=== PATIENT | female | born 1935 | race Caucasian/White ===

== ENCOUNTER 2018-08-30 01:58 | Observation (INO) ==
[2018-08-30 02:59] LABS: Basophils # 0.1 10*3/uL (0.0-0.2); Basophils % 0.8 % (0.0-0.8); Eosinophils # 0.3 10*3/uL (0.0-0.87); Eosinophils % 3.3 % (0.00-10.9); Hematocrit 40.4 VOL% (35.7-47.0); Hemoglobin 12.9 GM/DL (12.0-16.0); Immature Granulocytes % 0.5 %; Immature Granulocytes Absolute 0.04 #; Lymphocytes % 25.8 % (21.3-54.2); Mean Corpuscular HGB Conc 31.9 GM/DL (32-36); Mean Corpuscular Volume 88.2 FL (87-102); Mean Platelet Volume 10.1 FL (9.6-12.0); Monocytes % 7.2 % (1.7-12.7); Neutrophils % 62.4 % (38.7-73.9); Platelet Count 110 T/CUMM (130-400); Red Blood Count 4.58 MC/CUMM (3.8-5.5); Red Cell Distribution Width 14.1 % (9.3-17.3); White Blood Count 7.6 T/CUMM (4-12)
[2018-08-30] MEDS ORDERED: ONDANSETRON 4 MG/2 ML VIAL IV STA ×2 (03:05→05:08)
[2018-08-30] MEDS ORDERED: HYDROmorphone 2 MG/1 ML VIAL IV STA (03:05)
[2018-08-30] MEDS ORDERED: SODIUM CHLORIDE 0.9% 500 ML IV STA (03:05)
[2018-08-30 03:12] LABS: Albumin 3.4 G/DL (3.4-5.0); Bilirubin,Total 0.4 MG/DL (0.2-1.0); Calcium 8.9 MG/DL (8.5-10.1); Osmolality,Calculated 281.7 MOS/KG (273-304); Total Protein 7.7 G/DL (6.4-8.3)
[2018-08-30 04:03] LABS: Apearance,Urine CLEAR (Clear); Bilirubin,Urine Negative (Negative); Blood, Urine Negative (Negative); Glucose,Urine (UA) Negative (Negative); Hyaline Casts,Urine 40 /LPF (0-3); Ketones,Urine Negative (Negative); Mucus,Urine Many /LPF (Occasional); Nitrite,Urine Negative (Negative); Protein,Urine 100 MG/DL; RBC,Urine 2 /HPF (0-4); Squamous Epithelial Cell,Urine Occasional /HPF (0-10); Urine Color Yellow (Yellow); WBC,Urine 3 /HPF (0-6)
[2018-08-30] MEDS ORDERED: MAGNESIUM SULF RIDER 2 GM in PREMIX 1 EACH IV STA (04:11)
[2018-08-30] MEDS ORDERED: PROMETHAZINE 25 MG/1 ML VIAL IM STA (04:26)
[2018-08-30] MEDS ORDERED: PROMETHAZINE 25 MG/1 ML VIAL ONE (04:26)
[2018-08-30] MEDS ORDERED: MORPHINE 4 MG/1 ML VIAL IV STA (05:08)
[2018-08-30] MEDS ORDERED: NITROGLYCERIN 2% OINT 1 INCH/GM PACK TOP STA (05:08)
[2018-08-30] MEDS ORDERED: ASPIRIN EC 325 MG TABLET PO STA (05:08)
[2018-08-30] MEDS ORDERED: MORPHINE 4 MG/1 ML VIAL ONE (05:10)
[2018-08-30] MEDS ORDERED: NITROGLYCERIN SL 0.4 MG TABLET SL ONE (05:11)
[2018-08-30] MEDS ORDERED: ASPIRIN 325 MG TABLET ONE (05:11)
[2018-08-30] MEDS ORDERED: NITROGLYCERIN SL 0.4 MG TABLET SL STA (05:19)
[2018-08-30] MEDS ORDERED: FUROSEMIDE 40 MG/4 ML VIAL IV STA (05:35)
[2018-08-30] MEDS ORDERED: DEXTROSE 50% 25 GM/50 ML VIAL IV PRN (06:14)
[2018-08-30] MEDS ORDERED: GLUCAGON 1 MG VIAL IM PRN (06:14)
[2018-08-30 06:49] LABS: Troponin I < 0.015 NG/ML (0.00-0.045)
[2018-08-30 07:54] LABS: Albumin 3.6 G/DL (3.4-5.0); Bilirubin,Direct 0.1 MG/DL (0.0-0.20); Bilirubin,Indirect 0.3 MG/DL (0.0-1.0); Bilirubin,Total 0.4 MG/DL (0.2-1.0); Total Protein 7.6 G/DL (6.4-8.3)
[2018-08-30] MEDS: INSULIN REGULAR 100 UNIT/ML SUBCUT SCH ×4 (08:49→20:18)
[2018-08-30] MEDS: ACETAMINOPHEN 325 MG TABLET PO PRN ×3 (08:49→23:36)
[2018-08-30] MEDS ORDERED: PANTOPRAZOLE 40 MG TABLET PO SCH (09:00)
[2018-08-30] MEDS: ONDANSETRON 4 MG/2 ML VIAL IV PRN (17:49)
[2018-08-31] MEDS: ONDANSETRON 4 MG/2 ML VIAL IV PRN (00:22)
[2018-08-31] MEDS: ACETAMINOPHEN 325 MG TABLET PO PRN ×3 (06:17→16:30)
[2018-08-31] MEDS ORDERED: BISACODYL 5 MG TABLET PO SCH (07:00)
[2018-08-31] MEDS: INSULIN REGULAR 100 UNIT/ML SUBCUT SCH ×3 (07:53→16:31)
[2018-08-31] MEDS: BISACODYL 5 MG TABLET PO SCH ×3 (09:39→22:04)
[2018-08-31] MEDS: PANTOPRAZOLE 40 MG TABLET PO SCH ×2 (09:39→20:46)
[2018-08-31] MEDS ORDERED: POLYETHYLENE GLYCOL POWDER 255 GM BOTTLE PO ONE (18:00)
[2018-08-31] MEDS ORDERED: ZALEPLON 5 MG CAPSULE PO PRN (20:09)
[2018-08-31] MEDS ORDERED: MAGNESIUM CITRATE 300 ML BOTTLE PO ONE (21:00)
[2018-08-31] MEDS ORDERED: traMADol 50 MG TABLET PO PRN (21:46)
[2018-08-31] MEDS ORDERED: METHOCARBAMOL 500 MG TABLET PO PRN (21:47)
[2018-09-01] MEDS: INSULIN REGULAR 100 UNIT/ML SUBCUT SCH ×3 (00:40→13:40)
[2018-09-01] MEDS ORDERED: LIDOCAINE 2% 5 ML VIAL ONE (10:00)
[2018-09-01] MEDS ORDERED: PROPOFOL 200 MG/20 ML VIAL IV ONE (10:00)
[2018-09-01 10:53] VITALS: BP 130/60
[2018-09-01] MEDS: PANTOPRAZOLE 40 MG TABLET PO SCH (13:40)
== END 2018-09-01 16:51 | disposition home or self-care (01) ==
LOC: N.EDINP 01:58 → N.ED 01:58 → SUATTDRO 06:14 → N.EDINP 07:24 → N.5E 07:52
PROVIDERS: ADMIT Internal Medicine; ATTEND Hospitalist
PROC: COLONHP (2018-09-01 07:05)

== ENCOUNTER 2018-12-06 22:38 | Observation (INO) ==
[2018-12-06] MEDS ORDERED: ONDANSETRON 4 MG/2 ML VIAL IV STA (22:57)
[2018-12-06] MEDS ORDERED: MORPHINE 4 MG/1 ML VIAL IV STA (22:57)
[2018-12-06] MEDS ORDERED: NITROGLYCERIN 2% OINT 1 INCH/GM PACK TOP STA (22:57)
[2018-12-06] MEDS ORDERED: methylPREDNISolone SOD SUC 125 MG/2 ML VIAL IV STA (22:57)
[2018-12-06] MEDS ORDERED: ASPIRIN 325 MG TABLET PO STA (22:57)
[2018-12-06 23:10] LABS: Basophils % 0.5 % (0.0-0.8); Eosinophils % 0.7 % (0.00-10.9); Hematocrit 37.2 VOL% (35.7-47.0); Hemoglobin 12.4 GM/DL (12.0-16.0); Immature Granulocytes % 0.3 %; Immature Granulocytes Absolute 0.02 #; Lymphocytes # 0.8 10*3/uL (1.4-4.0); Lymphocytes % 13.7 % (21.3-54.2); Mean Corpuscular HGB Conc 33.3 GM/DL (32-36); Mean Corpuscular Volume 86.9 FL (87-102); Mean Platelet Volume 10.7 FL (9.6-12.0); Monocytes % 5.5 % (1.7-12.7); Neutrophils % 79.3 % (38.7-73.9); Platelet Count 85 T/CUMM (130-400); Red Blood Count 4.28 MC/CUMM (3.8-5.5); Red Cell Distribution Width 13.2 % (9.3-17.3)
[2018-12-06 23:20] LABS: PT Patient Result 11.2 SECS (9.6-12.2)
[2018-12-06 23:33] LABS: Albumin 3.5 G/DL (3.4-5.0); Bilirubin,Total 0.5 MG/DL (0.2-1.0); Calcium 8.6 MG/DL (8.5-10.1); Osmolality,Calculated 287.4 MOS/KG (273-304); Total Protein 7.4 G/DL (6.4-8.3)
[2018-12-06] MEDS ORDERED: MAGNESIUM SULF RIDER 2 GM in PREMIX 1 EACH IV STA (23:34)
[2018-12-06 23:53] LABS: Apearance,Urine CLEAR (Clear); Bilirubin,Urine Negative (Negative); Blood, Urine Negative (Negative); Glucose,Urine (UA) >=500 mg/dL (Negative); Ketones,Urine Negative (Negative); Nitrite,Urine Negative (Negative); Protein,Urine Negative; RBC,Urine 1 /HPF (0-4); Squamous Epithelial Cell,Urine Occasional /HPF (0-10); Urine Color Straw (Yellow); Urine Specific Gravity 1.008 (1.001-1.035); Urine Urobilinogen < 2.0 EU/DL (0.2-1.0)
[2018-12-06 23:54] LABS: Lymphocytes 13 % (20-55); Segmented Neutrophils 81 % (50-85)
[2018-12-06 23:55] LABS: Platelet Estimate Decreased; Total Cells Counted 100
[2018-12-07] MEDS ORDERED: ONDANSETRON 4 MG/2 ML VIAL IV PRN (00:32)
[2018-12-07] MEDS ORDERED: MORPHINE 4 MG/1 ML VIAL IV PRN (00:32)
[2018-12-07] MEDS ORDERED: METHOCARBAMOL 750 MG TABLET PO PRN (00:34)
[2018-12-07] MEDS ORDERED: GLUCAGON 1 MG VIAL IM PRN (00:35)
[2018-12-07] MEDS ORDERED: DEXTROSE 50% 25 GM/50 ML VIAL IV PRN (00:35)
[2018-12-07] MEDS ORDERED: ACETAMINOPHEN 500 MG TABLET PO PRN (04:49)
[2018-12-07 05:20] LABS: Basophils % 0.3 % (0.0-0.8); Hematocrit 37.5 VOL% (35.7-47.0); Hemoglobin 12.3 GM/DL (12.0-16.0); Immature Granulocytes % 0.3 %; Immature Granulocytes Absolute 0.02 #; Lymphocytes # 0.6 10*3/uL (1.4-4.0); Lymphocytes % 9.2 % (21.3-54.2); Mean Corpuscular HGB Conc 32.8 GM/DL (32-36); Mean Corpuscular Volume 86.4 FL (87-102); Mean Platelet Volume 11.1 FL (9.6-12.0); Monocytes % 0.6 % (1.7-12.7); Neutrophils % 89.6 % (38.7-73.9); Platelet Count 87 T/CUMM (130-400); Red Blood Count 4.34 MC/CUMM (3.8-5.5); Red Cell Distribution Width 13.2 % (9.3-17.3); White Blood Count 6.3 T/CUMM (4-12)
[2018-12-07 05:44] LABS: Hypochromasia 1+; Lymphocytes 7 % (20-55); Platelet Estimate Decreased; Segmented Neutrophils 91 % (50-85); Total Cells Counted 100
[2018-12-07 05:49] LABS: Osmolality,Calculated 283.8 MOS/KG (273-304)
[2018-12-07] MEDS ORDERED: LEVOTHYROXINE 100 MCG TABLET PO SCH (06:30)
[2018-12-07] MEDS ORDERED: ASPIRIN EC 81 MG TABLET PO SCH (09:00)
[2018-12-07] MEDS ORDERED: PANTOPRAZOLE 40 MG TABLET PO SCH (09:00)
[2018-12-07] MEDS ORDERED: ENOXAPARIN 40 MG/0.4 ML SYRINGE SUBCUT SCH (09:00)
[2018-12-07] MEDS ORDERED: GABAPENTIN 300 MG CAPSULE PO SCH (09:00)
[2018-12-07] MEDS: INSULIN REGULAR 100 UNIT/ML SUBCUT SCH ×2 (09:38→12:29)
[2018-12-07 12:23] VITALS: BP 144/60
== END 2018-12-07 12:40 | disposition home or self-care (01) ==
LOC: EDBD → EDUNIT# → N.ED 22:38 → N.EDINP 22:38 → SUATTDRO 12-07 00:32 → N.3E 12-07 01:14
PROVIDERS: ADMIT Internal Medicine; ATTEND Internal Medicine Cardiovascular Disease

== ENCOUNTER 2019-08-18 23:22 | Observation (INO) ==
[2019-08-18] MEDS ORDERED: ONDANSETRON 4 MG/2 ML VIAL ONE (23:53)
[2019-08-18] MEDS ORDERED: SODIUM CHLORIDE 0.9% 1,000 ML IV STA (23:56)
[2019-08-18] MEDS ORDERED: ONDANSETRON 4 MG/2 ML VIAL IV ONE (23:57)
[2019-08-19 00:15] LABS: Apearance,Urine CLEAR (Clear); Bilirubin,Urine Negative (Negative); Blood, Urine Negative (Negative); Glucose,Urine (UA) Negative (Negative); Ketones,Urine 5 mg/dL (Negative); Mucus,Urine Occasional /LPF (Occasional); Nitrite,Urine Negative (Negative); Protein,Urine Negative; RBC,Urine 1 /HPF (0-4); Squamous Epithelial Cell,Urine Occasional /HPF (0-10); Urine Color Yellow (Yellow); Urine Specific Gravity 1.014 (1.001-1.035); Urine Urobilinogen < 2.0 EU/DL (0.2-1.0); WBC,Urine 3 /HPF (0-6)
[2019-08-19 00:42] LABS: Basophils % 0.5 % (0.0-0.8); Eosinophils # 0.2 10*3/uL (0.0-0.87); Eosinophils % 2.6 % (0.00-10.9); Hematocrit 40.5 VOL% (35.7-47.0); Hemoglobin 13.2 GM/DL (12.0-16.0); Immature Granulocytes % 0.4 %; Immature Granulocytes Absolute 0.03 #; Lymphocytes # 2.4 10*3/uL (1.4-4.0); Lymphocytes % 30.9 % (21.3-54.2); Mean Corpuscular HGB Conc 32.6 GM/DL (32-36); Mean Corpuscular Volume 86.2 FL (87-102); Mean Platelet Volume 11.2 FL (9.6-12.0); Monocytes % 7.8 % (1.7-12.7); Neutrophils % 57.8 % (38.7-73.9); Red Cell Distribution Width 13.3 % (9.3-17.3); White Blood Count 7.7 T/CUMM (4-12)
[2019-08-19 00:51] LABS: Platelet Count 101 T/CUMM (130-400)
[2019-08-19 00:58] LABS: Albumin 3.2 G/DL (3.4-5.0); Bilirubin,Total 0.6 MG/DL (0.2-1.0); Calcium 8.9 MG/DL (8.5-10.1); Osmolality,Calculated 272.1 MOS/KG (273-304); Total Protein 7.5 G/DL (6.4-8.3)
[2019-08-19] MEDS ORDERED: MORPHINE 4 MG/1 ML VIAL IV STA (01:20)
[2019-08-19] MEDS ORDERED: DEXTROSE 50% 25 GM/50 ML VIAL IV PRN ×2 (01:37)
[2019-08-19] MEDS ORDERED: GLUCAGON 1 MG VIAL IM PRN ×2 (01:37)
[2019-08-19] MEDS ORDERED: NICOTINE 21 MG/24 HR PATCH TRANSDERM PRN (01:37)
[2019-08-19] MEDS ORDERED: ONDANSETRON 4 MG/2 ML VIAL IV PRN (01:37)
[2019-08-19] MEDS ORDERED: guaiFENesin/DM ER 600-30 MG TABLET PO PRN (01:37)
[2019-08-19] MEDS ORDERED: hydrALAZINE 20 MG/1 ML VIAL IV PRN (01:37)
[2019-08-19] MEDS ORDERED: ACETAMINOPHEN 325 MG TABLET PO PRN (01:37)
[2019-08-19] MEDS ORDERED: diphenhydrAMINE CAP 25 MG CAPSULE PO PRN (01:37)
[2019-08-19] MEDS ORDERED: DOCUSATE SODIUM 100 MG CAPSULE PO PRN (01:37)
[2019-08-19] MEDS ORDERED: ZALEPLON 5 MG CAPSULE PO PRN (01:37)
[2019-08-19] MEDS: SODIUM CHLOR 0.9% KCL 40 MEQ 40 MEQ/1,000 ML BAG IV SCH ×2 (02:03→16:27)
[2019-08-19 03:08] LABS: Apearance,Urine CLEAR (Clear); Bilirubin,Urine Negative (Negative); Blood, Urine Negative (Negative); Glucose,Urine (UA) Negative (Negative); Ketones,Urine Negative (Negative); Mucus,Urine Occasional /LPF (Occasional); Nitrite,Urine Negative (Negative); Protein,Urine Negative; RBC,Urine <1 /HPF (0-4); Squamous Epithelial Cell,Urine Occasional /HPF (0-10); Urine Color Straw (Yellow); Urine Specific Gravity 1.026 (1.001-1.035); Urine Urobilinogen < 2.0 EU/DL (0.2-1.0); WBC,Urine <1 /HPF (0-6)
[2019-08-19 06:23] LABS: Basophils # 0.1 10*3/uL (0.0-0.2); Basophils % 0.9 % (0.0-0.8); Eosinophils # 0.2 10*3/uL (0.0-0.87); Eosinophils % 3.3 % (0.00-10.9); Hematocrit 38.9 VOL% (35.7-47.0); Hemoglobin 12.8 GM/DL (12.0-16.0); Immature Granulocytes % 0.3 %; Immature Granulocytes Absolute 0.02 #; Mean Corpuscular HGB Conc 32.9 GM/DL (32-36); Mean Corpuscular Volume 84.9 FL (87-102); Mean Platelet Volume 10.9 FL (9.6-12.0); Monocytes % 9.3 % (1.7-12.7); Neutrophils % 57.2 % (38.7-73.9); Red Blood Count 4.58 MC/CUMM (3.8-5.5); Red Cell Distribution Width 13.3 % (9.3-17.3); White Blood Count 6.9 T/CUMM (4-12)
[2019-08-19 06:45] LABS: Albumin 2.9 G/DL (3.4-5.0); Bilirubin,Total 0.8 MG/DL (0.2-1.0); Calcium 8.4 MG/DL (8.5-10.1); Osmolality,Calculated 274.8 MOS/KG (273-304)
[2019-08-19 06:53] LABS: Platelet Count 80 T/CUMM (130-400)
[2019-08-19] MEDS: ALBUTEROL 2.5 MG/3 ML NEB RESP TX SCH ×3 (07:13→20:11)
[2019-08-19 08:27] LABS: Hypochromasia Slight
[2019-08-19 08:28] LABS: Microcytosis 1+; Platelet Estimate Decreased
[2019-08-19] MEDS ORDERED: ENOXAPARIN 40 MG/0.4 ML SYRINGE SUBCUT SCH (09:00)
[2019-08-19] MEDS: INSULIN LISPRO 100 UNIT/ML SUBCUT SCH ×4 (09:20→21:49)
[2019-08-19] MEDS: PANTOPRAZOLE 40 MG TABLET PO SCH (10:23)
[2019-08-19 15:47] LABS: INR 1.2; PT Patient Result 12.4 SECS (9.8-11.9); Partial Thromboplastin Time 28.9 SECS (23.9-33.8)
[2019-08-19 15:59] LABS: % Iron Saturation 12.2 % (18-50)
[2019-08-19 16:59] LABS: Hepatitis B Core IgM Quant 0.16 Index; Hepatitis B Surface Ag Quant 0.12 Index; Hepatitis B Surface Ag Result Negative (Negative); Hepatitis C Virus Ab Quant 0.08 Index; Hepatitis C Virus Ab Result Negative (Negative)
[2019-08-20] MEDS: ALBUTEROL 2.5 MG/3 ML NEB RESP TX SCH ×4 (00:50→19:52)
[2019-08-20] MEDS: SODIUM CHLOR 0.9% KCL 40 MEQ 40 MEQ/1,000 ML BAG IV SCH (04:14)
[2019-08-20 07:00] LABS: Basophils % 0.7 % (0.0-0.8); Eosinophils # 0.2 10*3/uL (0.0-0.87); Eosinophils % 3.2 % (0.00-10.9); Hematocrit 37.4 VOL% (35.7-47.0); Hemoglobin 11.9 GM/DL (12.0-16.0); Immature Granulocytes % 0.7 %; Immature Granulocytes Absolute 0.04 #; Lymphocytes # 1.4 10*3/uL (1.4-4.0); Lymphocytes % 23.9 % (21.3-54.2); Mean Corpuscular HGB Conc 31.8 GM/DL (32-36); Mean Platelet Volume 10.5 FL (9.6-12.0); Monocytes % 7.2 % (1.7-12.7); Neutrophils % 64.3 % (38.7-73.9); Red Blood Count 4.25 MC/CUMM (3.8-5.5); Red Cell Distribution Width 13.7 % (9.3-17.3)
[2019-08-20 07:18] LABS: Platelet Count 73 T/CUMM (130-400)
[2019-08-20 07:26] LABS: Calcium 8.2 MG/DL (8.5-10.1); Osmolality,Calculated 274.8 MOS/KG (273-304)
[2019-08-20 07:42] LABS: Platelet Estimate Decreased
[2019-08-20 07:43] LABS: Anisocytosis Slight
[2019-08-20] MEDS ORDERED: LIDOCAINE 2% 5 ML VIAL ONE (09:00)
[2019-08-20] MEDS ORDERED: propofoL 200 MG/20 ML VIAL IV ONE (09:00)
[2019-08-20] MEDS: INSULIN LISPRO 100 UNIT/ML SUBCUT SCH ×4 (09:23→22:15)
[2019-08-20] MEDS: LACTATED RINGERS 1,000 ML IV SCH ×2 (09:24→09:27)
[2019-08-20] MEDS: PANTOPRAZOLE 40 MG TABLET PO SCH (10:38)
[2019-08-20] MEDS ORDERED: SIMETHICONE CHEW 80 MG TABLET PO PRN (12:32)
[2019-08-21] MEDS: SODIUM CHLOR 0.9% KCL 40 MEQ 40 MEQ/1,000 ML BAG IV SCH ×3 (00:20→09:56)
[2019-08-21] MEDS: ALBUTEROL 2.5 MG/3 ML NEB RESP TX SCH ×2 (01:29→08:33)
[2019-08-21 07:04] LABS: Basophils # 0.1 10*3/uL (0.0-0.2); Basophils % 0.8 % (0.0-0.8); Eosinophils # 0.3 10*3/uL (0.0-0.87); Eosinophils % 4.6 % (0.00-10.9); Hematocrit 36.4 VOL% (35.7-47.0); Hemoglobin 11.8 GM/DL (12.0-16.0); Immature Granulocytes % 0.2 %; Immature Granulocytes Absolute 0.01 #; Lymphocytes # 1.8 10*3/uL (1.4-4.0); Mean Corpuscular HGB Conc 32.4 GM/DL (32-36); Mean Corpuscular Volume 86.3 FL (87-102); Mean Platelet Volume 10.7 FL (9.6-12.0); Monocytes % 7.6 % (1.7-12.7); Neutrophils % 57.8 % (38.7-73.9); Red Blood Count 4.22 MC/CUMM (3.8-5.5); Red Cell Distribution Width 13.7 % (9.3-17.3)
[2019-08-21 07:10] LABS: Platelet Count 69 T/CUMM (130-400)
[2019-08-21 07:26] LABS: Hypochromasia 1+; Microcytosis 1+; Platelet Estimate Decreased
[2019-08-21 07:31] LABS: Calcium 8.4 MG/DL (8.5-10.1); Osmolality,Calculated 274.8 MOS/KG (273-304)
[2019-08-21] MEDS ORDERED: MAGNESIUM SULF RIDER 4 GM in PREMIX 1 EACH IV ONE (09:00)
[2019-08-21] MEDS: INSULIN LISPRO 100 UNIT/ML SUBCUT SCH ×2 (09:54→13:02)
[2019-08-21] MEDS: PANTOPRAZOLE 40 MG TABLET PO SCH (09:55)
[2019-08-21 12:36] VITALS: BP 121/45
== END 2019-08-21 13:50 | disposition home or self-care (01) ==
LOC: EDUNIT# → EDBD → N.ED 23:22 → N.EDINP 23:22 → SUATTDRO 08-19 01:37 → N.3E 08-19 02:11 → N.2E 08-21 07:14
PROVIDERS: ADMIT Hospitalist; ATTEND Internal Medicine